=== PATIENT | female | born 1990 | race Caucasian/White ===

== ENCOUNTER 2024-08-19 00:31 | Emergency (ER) | payer SELFPAY ==
[~2024-08-19] VITALS: Ht 154.9 cm; Wt 59.0 kg
[2024-08-19 00:50] VITALS: TEMP 36.8; O2SAT 99
[2024-08-19 01:14] VITALS: BP 116/85; PULSE 78; RESP 14; O2SAT 100
== END 2024-08-19 01:32 | disposition home or self-care (01) ==
LOC: ER 00:31
DX: T51.0X1A Toxic effect of ethanol, accidental (unintentional), initial encounter (principal); Y92.89 Other specified places as the place of occurrence of the external cause
CPT/HCPCS: 99283